=== PATIENT | male | born 1950 | race American Indian/Alaskan Native ===

== ENCOUNTER 2019-06-03 10:45 | Outpatient (CLI) | payer OTHER, SELFPAY ==
[2019-06-03 11:14] LABS: HCT 42.2 % (40.0-50.0); HGB 15.2 g/dL (13.5-17.5); Mean Corpuscular Hemoglobin 31.5 pg (27.0-33.0); Mean Corpuscular Volume 87.4 fL (80-95); Mean Platelet Volume 9.6 fL (8.0-11.0); Platelet Count 188 x1000/uL (130-400); RBC 4.83 m/cumm (4.50-6.00); RBC Distribution Width 12.8 % (11.8-14.1); White Blood Cell Count 6.04 k/cumm (4.4-10.8)
[2019-06-03 12:20] LABS: ALT 29 U/L (16-63); AST 14 U/L (15-37); Albumin 4.1 g/dL (3.4-5.0); Alkaline Phosphatase 78 U/L (46-116); Anion Gap 11.5 mmol/L (3-11); BUN 16 mg/dL (7-18); Bilirubin, Total 2.5 mg/dL (0.2-1.0); CO2 24.5 mmol/L (21.0-32.0); Calcium 9.3 mg/dL (8.5-10.1); Calculated LDL 98 mg/dL (<100); Chloride 102 mmol/L (98-107); Cholesterol 173 mg/dL (<200); Glucose 204 mg/dL (74-106); HDL Cholesterol 53 mg/dL (40-60); Potassium 4.1 mmol/L (3.5-5.1); Sodium 138 mmol/L (136-145); Triglyceride 113 mg/dL (<150)
== END 2019-06-03 11:05 ==
PROVIDERS: PCP Nurse Practitioner; Visit Provider Nurse Practitioner
DX: E11.9 Type 2 diabetes mellitus without complications (principal); E78.5 Hyperlipidemia, unspecified
CPT/HCPCS: 36415; 80053; 80061; 85027; 83036

== ENCOUNTER 2020-12-20 03:01 | Outpatient (CLI) | payer OTHER, SELFPAY ==
[2020-12-20 11:11] LABS: ALT 16 U/L (16-63); AST 13 U/L (15-37); Albumin 3.5 g/dL (3.4-5.0); Alkaline Phosphatase 77 U/L (46-116); Anion Gap 7.2 mmol/L (3-11); BUN 19 mg/dL (7-18); Bilirubin, Total 1.3 mg/dL (0.2-1.0); CO2 26.8 mmol/L (21.0-32.0); Calcium 8.8 mg/dL (8.5-10.1); Chloride 99 mmol/L (98-107); Glucose 270 mg/dL (74-106); Potassium 4.6 mmol/L (3.5-5.1); Sodium 133 mmol/L (136-145); Total Protein 6.8 g/dL (6.4-8.2)
== END 2020-12-20 03:02 | disposition home or self-care (01) ==
LOC: LBO 03:01
PROVIDERS: PCP Nurse Practitioner; Visit Provider Nurse Practitioner
DX: E78.5 Hyperlipidemia, unspecified (principal); E11.9 Type 2 diabetes mellitus without complications
CPT/HCPCS: 36415; 80053

== ENCOUNTER 2021-01-18 13:56 | Outpatient (CLI) | payer MEDICARE, SELFPAY ==
--- NOTE | 2021-01-18 13:45 | RT.EKG_ITS ---
APPROVED REPORT Exam: Resting ECG Reason for Exam: ayden Patient Location: O HR:89 bpm ECG Measurements Heart Rate 89 AXIS NE 142 P 69 QRSd 90 QRS 67 QT 421 T 63 QTc 512 Conclusion Sinus rhythm...normal P axis, V-rate 60- 99 Probable left atrial enlargement...P >50mS, <-0.10mV V1
== END 2021-01-18 13:57 | disposition home or self-care (01) ==
LOC: DI.KIM 13:57
PROVIDERS: PCP Nurse Practitioner; Visit Provider Nurse Practitioner
DX: E11.9 Type 2 diabetes mellitus without complications (principal); E78.5 Hyperlipidemia, unspecified
CPT/HCPCS: 93010

== ENCOUNTER 2021-02-13 00:43 | Outpatient (CLI) | payer MEDICARE, SELFPAY ==
--- NOTE | 2021-02-13 13:46 | DI.RAD_ITS ---
Exam(s) XR CHEST 2V PA LATERAL EXAM: XR CHEST 2V PA LATERAL CLINICAL HISTORY: weight loss,abnl blood chemistry,r63.4,r79.9 TECHNIQUE: 2D digital imaging was performed. COMPARISON: CT CT CHEST W/ from 10/15/2018 FINDINGS: MEDIASTINUM: Normal. HEART: Normal. PULMONARY VASCULATURE: Normal. LUNGS: Clear. PLEURAL SPACE: No pleural effusion or pneumothorax. BONE:Unremarkable for age. IMPRESSION: No acute abnormality. DATA REPOSITORY: RADIATION DOSE DELIVERED:
== END 2021-02-13 01:03 ==
PROVIDERS: PCP Nurse Practitioner; Visit Provider Nurse Practitioner
DX: R63.4 Abnormal weight loss (principal); R79.89 Other specified abnormal findings of blood chemistry
CPT/HCPCS: 71046

== ENCOUNTER 2021-02-13 03:37 | Outpatient (CLI) | payer MEDICARE, SELFPAY ==
[2021-02-13 13:38] LABS: Abs Immature Grans 0.02 10^3/uL (0.0-0.06); Absolute Basophil Count 0.05 10^3/uL (0.0-0.2); Absolute Eosinophil Count 0.18 10^3/uL (0.0-0.7); Absolute Lymphocyte Count 1.92 10^3/uL (1.2-3.4); Absolute Monocyte Count 0.59 10^3/uL (0.1-0.8); Absolute Neutrophil Count 3.22 10^3/uL (1.2-6.7); Basophils % 0.8; HCT 44.1 % (40.0-50.0); HGB 14.2 g/dL (13.5-17.5); Immature Grans % 0.3; Lymphocytes % 32.1; MCH 25.8 pg (27.0-33.0); MCHC 32.2 % (32.0-36.0); MPV 8.9 fL (8.0-11.0); Monocytes % 9.9; Neutrophils % 53.9; Nucleated RBC 0 %; Platelet Count 224 10^3/uL (130-400); RBC 5.51 10^6/uL (4.36-5.78); RDW 15.2 % (11.8-14.1); RDW-SD 43.9 fL; WBC 5.98 10^3/uL (4.4-10.8)
[2021-02-13 15:59] LABS: ALT 13 U/L (16-63); AST 10 U/L (15-37); Albumin 3.4 g/dL (3.4-5.0); Alkaline Phosphatase 81 U/L (46-116); Anion Gap 10.6 mmol/L (3-11); BUN 19 mg/dL (7-18); Bilirubin, Direct 0.2 mg/dL (0.0-0.2); Bilirubin, Total 1.4 mg/dL (0.2-1.0); CO2 27.4 mmol/L (21.0-32.0); CREATININE 0.8 mg/dL (0.70-1.30); Chloride 97 mmol/L (98-107); Glucose 237 mg/dL (74-106); Potassium 4.6 mmol/L (3.5-5.1); Sodium 135 mmol/L (136-145); Total Protein 6.7 g/dL (6.4-8.2)
[2021-02-13 16:15] LABS: Calculated LDL 124 mg/dL (<100); Cholesterol 174 mg/dL (<200); HDL Cholesterol 30 mg/dL (40-60); Triglyceride 102 mg/dL (<150)
[2021-02-13 22:27] LABS: PSA, Screening 0.4 ng/mL (0.0-4.5)
[2021-02-14 11:27] LABS: HIV-1/2 Ag & Ab Screen Negative (Negative)
[2021-02-14 16:01] LABS: HBs Antibody, Qual Negative (See Note); HBs Antibody, Quant <3.1 mIU/mL (See Note); Hepatitis B Core Antibody Negative (Negative); Hepatitis B surface Ag Negative (Negative); Hepatitis C Ab w Rflx HCV PCR Negative (Negative)
[2021-02-20 13:52] LABS: Testosterone, Free 21.6
[2021-02-20 13:53] LABS: Testosterone, Total 161 ng/dL
== END 2021-02-13 03:38 | disposition home or self-care (01) ==
LOC: LBO 03:37
PROVIDERS: PCP Nurse Practitioner; Visit Provider Nurse Practitioner
DX: I10 Essential (primary) hypertension (principal); R63.4 Abnormal weight loss; E78.5 Hyperlipidemia, unspecified; E11.9 Type 2 diabetes mellitus without complications; R79.89 Other specified abnormal findings of blood chemistry; R35.1 Nocturia; N52.9 Male erectile dysfunction, unspecified; Z11.4 Encounter for screening for human immunodeficiency virus [HIV]; Z11.59 Encounter for screening for other viral diseases; Z12.5 Encounter for screening for malignant neoplasm of prostate; Z01.84 Encounter for antibody response examination
CPT/HCPCS: 36415; 80053; 80061; 80076; 84153; 84402; 84403; 86704; 86706; 86803; 87340; 87389; 84443; 85025

== ENCOUNTER 2021-02-26 00:11 | Outpatient (CLI) | payer MEDICARE, SELFPAY ==
--- NOTE | 2021-02-26 10:30 | DI.US_ITS ---
Exam(s) US AAA SCREENING EXAM: US AAA SCREENING CLINICAL HISTORY: SCREENING FOR AAA,Z13.6 COMPARISON: No exams were available for comparison FINDINGS: Abdominal Aorta: Proximal: 1.9 x 1.9 cm Mid: 1.7 x 1.9 cm Distal: 1.7 x 1.8 cm Iliac's: Right: 1.3 x 1 cm Left: 1.2 x 1 cm No significant atherosclerotic disease is seen. IMPRESSION: No evidence of abdominal aortic aneurysm. DATA REPOSITORY:
== END 2021-02-26 00:31 ==
PROVIDERS: PCP Nurse Practitioner; Visit Provider Nurse Practitioner
DX: Z13.6 Encounter for screening for cardiovascular disorders (principal)
CPT/HCPCS: 76706

== ENCOUNTER 2021-10-10 09:22 | Outpatient (CLI) | payer MEDICARE, SELFPAY ==
--- NOTE | 2021-10-10 09:15 | RT.EKG_ITS ---
APPROVED REPORT Exam: Resting ECG Reason for Exam: abnormal ekg ER 10/01/21, flipped T, ? ischemia Patient Location: O HR:73 bpm ECG Measurements Heart Rate 73 AXIS [place] 156 P 75 QRSd 91 QRS 78 QT 343 T 88 QTc 378 Conclusion Sinus rhythm...normal P axis, V-rate 60- [address]-T abnormalities
== END 2021-10-10 09:23 | disposition home or self-care (01) ==
LOC: DI.KIM 09:23
PROVIDERS: PCP Nurse Practitioner; Visit Provider Nurse Practitioner
DX: R94.31 Abnormal electrocardiogram [ECG] [EKG] (principal)
CPT/HCPCS: 93010

== ENCOUNTER 2022-10-01 02:06 | Outpatient (CLI) | payer MEDICARE, SELFPAY ==
[2022-10-01 10:03] LABS: Calculated LDL 130 mg/dL (<100); Cholesterol 215 mg/dL (<200); HDL Cholesterol 60 mg/dL (40-60); Triglyceride 127 mg/dL (<150)
== END 2022-10-01 02:07 | disposition home or self-care (01) ==
LOC: LBO 02:06
PROVIDERS: PCP Nurse Practitioner; Referring Provider Nurse Practitioner; Visit Provider Nurse Practitioner
DX: E78.5 Hyperlipidemia, unspecified (principal); E11.9 Type 2 diabetes mellitus without complications; C18.2 Malignant neoplasm of ascending colon
CPT/HCPCS: 36415; 80061